=== PATIENT | female | born 1960 | race Asian ===

== ENCOUNTER → 2016-08-21 | Outpatient (CLI) | payer OTHER ==
--- NOTE | 2016-08-21 15:10 | MA ---
Screening Digital Mammogram With iCAD Analysis Clinical Indications: Routine screening. Technique: Standard cephalocaudal and mediolateral oblique projections were obtained. This examinatio n was processed by the iCAD computer-aided detection system. Comparison: August 2015, July 2015, August 2013, May 2012. Also, left breast ultrasound f rom August 27, 2015 was reviewed. Breast density: Type C; Heterogeneously dense. Findings: CAD was reviewed. No spiculated masses, suspicious calcifications or other signs of malign savita are identified. There has been no significant change in the appearance of either breast. Vascul ar calcifications are noted. Impression: Negative mammogram. BI-RADS 1. Recommendation: Routine mammographic screening in one year as long as physical examination [facility] negativ [facility]. Dense breast parenchyma diminishes mammographic sensitivity. Negative mammography should not preclude additional workup of a clinically suspicious finding. The patient's information is entered into a reminder system with a target due date for her next mammo gram.
== END ==
LOC: BRMIMAGING 13:16
DX: Z12.31 Encounter for screening mammogram for malignant neoplasm of breast (principal)
CPT/HCPCS: G0202

== ENCOUNTER → 2017-08-23 | Outpatient (CLI) | payer OTHER | LOC: BRMIMAGING 13:45 | PROVIDERS: ATTEND Physician Assistant Medical | DX: Z12.31 Encounter for screening mammogram for malignant neoplasm of breast (principal) ==